=== PATIENT | male | born 1985 | race Caucasian/White ===

== ENCOUNTER 2019-07-14 12:52 | Emergency (ER) | payer OTHER ==
[~2019-07-14] VITALS: Ht 177.8 cm; Wt 77.1 kg
[~2019-07-14 12:52] MED LIST: AMOX500 PO; Augmentin 875-1 EACH PO; Crutch1 EACH MISC; HYDACE5 PO; IBUP800 PO; MECL25 PO; Naprosyn500 MG PO; Norco 5-325 Ta1 EACH PO; OXYACE5T PO; PRED20 PO
[2019-07-14] MEDS ORDERED: Bactrim Ds Tab1 EACH PO (13:53)
== END 2019-07-14 14:11 | disposition home or self-care (01) ==
LOC: ER 12:52
DX: L02.511 Cutaneous abscess of right hand (principal); F17.210 Nicotine dependence, cigarettes, uncomplicated
CPT/HCPCS: 10061; 73140; 99283-25; A9270-GY

== ENCOUNTER 2021-01-25 05:51 | Emergency (ER) | payer SELFPAY ==
[~2021-01-25] VITALS: Ht 172.7 cm; Wt 74.8 kg
[~2021-01-25 05:51] MED LIST changes: +Bactrim Ds Tab1 EACH PO
[2021-01-25] MEDS ORDERED: NARCAN4 M1 (06:19)
== END 2021-01-25 06:25 | disposition home or self-care (01) ==
LOC: ER 05:51
DX: T40.1X1A Poisoning by heroin, accidental (unintentional), initial encounter (principal); R40.4 Transient alteration of awareness; F17.210 Nicotine dependence, cigarettes, uncomplicated
CPT/HCPCS: 99284

== ENCOUNTER → 2021-07-22 | Outpatient (CLI) | payer SELFPAY ==
[~2021-07-22] MED LIST changes: +NARCAN4 M1
== END | disposition home or self-care (01) ==
LOC: LAB SHORT 14:14
DX: R07.9 Chest pain, unspecified (principal)
CPT/HCPCS: 84484

== ENCOUNTER 2021-08-03 20:51 | Emergency (ER) | payer SELFPAY ==
[~2021-08-03] VITALS: Ht 175.3 cm; Wt 81.7 kg
[2021-08-04] MEDS ORDERED: NARCAN4 M1 (00:10)
== END 2021-08-04 00:34 | disposition home or self-care (01) ==
LOC: ER 20:51
DX: T40.1X1A Poisoning by heroin, accidental (unintentional), initial encounter (principal); F17.210 Nicotine dependence, cigarettes, uncomplicated
CPT/HCPCS: 36415; 93005; 93010

== ENCOUNTER 2024-07-19 18:11 | Emergency (ER) | payer OTHER ==
[~2024-07-19] VITALS: Ht 172.7 cm; Wt 81.7 kg
[2024-07-19] MEDS ORDERED: Morphine Sulfate 4 MG/1 ML Injection IV ONE (20:15)
[2024-07-19 20:20] LABS: BASOPHILS ABSOLUTE AUTO 0.03 K/mm3 (0.00-0.23); BASOPHILS PERCENT AUTO 0 % (0-2); EOSINOPHILS PERCENT AUTO 1 % (0-6); Hematocrit 42.1 % (37.0-53.0); Hemoglobin 14.6 g/dL (13.5-17.5); IMMATURE GRAN ABSOLUTE AUTO 0.12 K/mm3 (0.00-0.10); IMMATURE GRAN PERCENT AUTO 1 % (0-1); LYMPHOCYTES PERCENT AUTO 9 % (21-46); MONOCYTES ABSOLUTE AUTO 0.92 K/mm3 (0.16-1.47); MONOCYTES PERCENT AUTO 6 % (4-13); Mean Corpuscular HGB 29.8 pg (26.0-34.0); Mean Corpuscular HGB Conc 34.7 g/dL (31.5-36.5); Mean Corpuscular Volume 86 fL (80-100); Mean Platelet Volume 9.9 fL (9.1-12.4); NEUTROPHILS ABSOLUTE AUTO 12.32 K/mm3 (1.96-9.15); NEUTROPHILS PERCENT AUTO 83 % (41-73); Platelet Count 234 K/mm3 (150-400); RDW Standard Deviation 40.2 fL (35.1-46.3); White Blood Cell Count 14.79 K/mm3 (4.00-11.30)
[2024-07-19 20:40] LABS: Albumin, Blood 4.2 g/dL (3.4-5.0); Bilirubin, Total 0.5 mg/dL (0.1-1.0); Bun/Creatinine Ratio 16.5 (12.0-20.0); Calcium, Blood 9.2 mg/dL (8.5-10.1); Creatinine, Blood 0.85 mg/dL (0.60-1.20); Globulin, Blood 4.4 g/dL (2.2-4.0); Potassium, Blood 3.5 mmol/L (3.5-5.5); Total Protein, Blood 8.6 g/dL (6.4-8.2)
[2024-07-19] MEDS ORDERED: Lidocaine 4% 1 Patch TOP ONE (21:10)
[2024-07-19] MEDS ORDERED: Ketorolac Tromethamine 30mg Vial IV ONE (21:10)
[2024-07-19] MEDS ORDERED: Dexamethasone Sod Phos 10 MG/ML 1ML VIAL IV ONE (21:10)
[2024-07-19] MEDS ORDERED: NS 1,000 ML IV SCH (21:10)
[2024-07-19] MEDS ORDERED: Acetaminophen 500 MG Tab PO ONE (21:10)
[2024-07-19] MEDS ORDERED: Cyclobenzaprine HCl 10 MG Tab PO ONE (21:10)
[2024-07-19] MEDS ORDERED: LIDO700A20 TOP (22:57)
[2024-07-19] MEDS ORDERED: CYCL10 PO (22:57)
[2024-07-19] MEDS ORDERED: MOTRIN IB200 MG PO (22:57)
[2024-07-19] MEDS ORDERED: ACET500 PO (22:57)
[2024-07-19 23:16] VITALS: BP 128/75
== END 2024-07-19 23:18 | disposition home or self-care (01) ==
LOC: ER 18:11
PROVIDERS: Student in an Organized Health Care Education/Training Program
DX: S22.32XA Fracture of one rib, left side, initial encounter for closed fracture (principal); S00.03XA Contusion of scalp, initial encounter; F17.210 Nicotine dependence, cigarettes, uncomplicated; V49.9XXA Car occupant (driver) (passenger) injured in unspecified traffic accident, initial encounter
CPT/HCPCS: 70450; 71260; 72125; 74177; 80053; 84484; 85025; 93005; 93010; 96361; 96374-59; 96375; 99285-25; A9270; J1100; J1885; J7030; L0160; Q9967